=== PATIENT | male | born 2000 | race Two or more races ===

== ENCOUNTER → 2023-11-16 | Emergency (ER) | payer OTHER ==
[~2023-11-16] VITALS: Ht 157.5 cm; Wt 60.0 kg
[2023-11-16 11:52] VITALS: BP 124/80; PULSE 56; RESP 18; TEMP 97.2
== END | disposition still patient (30) ==
LOC: EMS 11:39
DX: S70.02XA Contusion of left hip, initial encounter (principal); S40.012A Contusion of left shoulder, initial encounter; V49.88XA Car occupant (driver) (passenger) injured in other specified transport accidents, initial encounter; Y93.89 Activity, other specified; Y92.89 Other specified places as the place of occurrence of the external cause; Y99.8 Other external cause status
CPT/HCPCS: 99282; Z7502